=== PATIENT | female | born 1955 | race Caucasian/White ===

== ENCOUNTER → 2017-06-27 | Outpatient (CLI) | payer BC | LOC: RAD 01:50 | DX: Z12.31 Encounter for screening mammogram for malignant neoplasm of breast (principal) ==

== ENCOUNTER → 2018-06-28 | Outpatient (CLI) | payer BC | LOC: RAD 01:21 | DX: Z12.31 Encounter for screening mammogram for malignant neoplasm of breast (principal) ==

== ENCOUNTER → 2019-03-23 | Outpatient (CLI) | payer BC ==
--- NOTE | 2019-03-23 11:29 | 2DMMODE ---
[facility] [place] [address] 2 D/M-MODE ECHOCARDIOGRAM Name: REINA BURTON Room #: REG [facility]#: [id number] Admission: 03/23/19 Attend Phys: Tal Huston Discharge: Date of : 57 Date of Service: 03/23/19 1129 Report #: [id number] THIS REPORT FOR: //name// APPROVED REPORT Study performed: 03/23/2019 10:33:08 EXAM: Comprehensive 2D, Doppler, and color-flow Echocardiogram Patient Location: Out-Patient Room #: Echo lab 2 Status: routine BSA: 2.21 HR: 72 bpm BP: 145/79 mmHg Rhythm: NSR Other Information Study Quality: Good Indications Diabetes Chest Pain Hypertension/HDD 2D Dimensions RVDd: 30.23 mm IVSd: 10.86 (7-11mm) LVOT Diam: 19.93 (18-24mm) LVDd: 50.69 mm PWd: 11.50 (7-11mm) Ascending Ao: 27.08 (22-36mm) LVDs: 36.69 (25-40mm) Aortic Root: 28.43 mm IVC: 19.00 mm Volumes Left Atrial Volume (Systole) Single Plane 4CH: 63.11 mL Single Plane 2CH: 51.10 mL LA ESV Index: 30.00 mL/m2 Aortic Valve AoV Peak Durga.: 1.32 m/s AO Peak Gr.: 7.02 mmHg LVOT Max P.91 mmHg LVOT Max V: 0.99 m/s HA Vmax: 2.32 cm2 Mitral Valve E/A Ratio: 1.6 [facility] [place] [address] 2 D/M-MODE ECHOCARDIOGRAM Name: REINA BURTON Room #: REG [facility]#: [id number] Admission: 03/23/19 Attend Phys: Tal Huston Discharge: Date of : 57 Date of Service: 03/23/19 1129 Report #: [id number] MV Decel. Time: 167.85 ms MV E Max Durga.: 1.02 m/s MV A Durga.: 0.63 m/s MV PHT: 48.68 ms IVRT: 96.89 ms Pulmonary Valve PV Peak Durga.: 1.04 m/s PV Peak Gr.: 4.33 mmHg Pulmonary Vein P Vein S: 0.32 m/s P Vein A: 0.26 m/s P Vein D: 0.30 m/s P Vein A Dur.: 83.0 msec P Vein S/D Ratio: 1.07 Left Ventricle The left ventricle is normal size. There is normal LV segmental wall motion. There is normal left ventricular wall thickness. Left ventricular systolic function is normal. The left ventricular ejection fraction is within the normal range. LVEF is 55-60%. The left ventricular diastolic function is normal. Right Ventricle The right ventricle is normal size. The right ventricular systolic function is normal. Atria The left atrium size is normal. The right atrium size is normal. Aortic Valve The aortic valve is normal in structure. No aortic regurgitation is present. There is no aortic valvular stenosis. Mitral Valve The mitral valve is normal in structure. There is no mitral valve regurgitation noted. No evidence of mitral valve stenosis. Tricuspid Valve The tricuspid valve is normal in structure. There is no tricuspid valve regurgitation noted. Pulmonic Valve The pulmonary valve is normal in structure. There is no pulmonic valvular regurgitation. [employer] [facility] [address] [address] 2 D/M-MODE ECHOCARDIOGRAM Name: MICHEALSRUTHIREINA Radha [facility] [id number] Admission: 03/23/19 Attend Phys: Tal Huston Discharge: Date of : 57 Date of Service: 03/23/19 1129 Report #: [id number] The aortic root is normal in size. IVC is normal in size and collapses >50% with inspiration. Pericardium There is no pericardial effusion. <Conclusion> The left ventricle is normal size. LVEF is 55-60%. The aortic valve is normal in structure. The mitral valve is normal in structure. The tricuspid valve is normal in structure. The pulmonary valve is normal in structure. There is no pericardial effusion. <ELECTRONICALLY SIGNED> By: Tal Oreilly MD 03/23/19 1129 1129 1129 Tal Oreilly MD /INF
== END ==
LOC: NUC 08:06
DX: R07.9 Chest pain, unspecified (principal); E11.9 Type 2 diabetes mellitus without complications; I10 Essential (primary) hypertension; E78.5 Hyperlipidemia, unspecified

== ENCOUNTER → 2019-07-25 | Outpatient (CLI) | payer BC | LOC: BC 07-23 14:14 | DX: Z12.31 Encounter for screening mammogram for malignant neoplasm of breast (principal) ==